=== PATIENT | female | born 1940 | race Caucasian/White ===

== ENCOUNTER 2017-12-11 15:34 | Inpatient (IN) | payer BC, OTHER ==
[~2017-12-11] VITALS: Ht 165.1 cm; Wt 90.5 kg
[2017-12-11 16:41] LABS: Basophils # (auto) 0.1 uL; Eosinophils # (auto) 0.1 uL; Eosinophils % (auto) 1.6 % (0.0-7.0); Hematocrit 31.6 % (36.0-46.0); Hemoglobin 10.4 g/dL (12.2-16.2); Lymphocytes # (auto) 1.7 uL; Mean Corpuscular Hemoglobin 30.6 pg (28.0-32.0); Mean Corpuscular Volume 92.7 fL (80.0-100.0); Monocytes # (auto) 0.7 uL; Monocytes % (auto) 9.7 % (0.0-12.0); Neutrophils # (auto) 4.8 uL; Neutrophils % (auto) 64.7 % (37.0-80.0); Nucleated Red Blood Cells % 0.1 %; Platelet Count (auto) 182 10^3/uL (140-450); Red Blood Cells 3.41 10^6/uL (4.0-5.20); Red Cell Distribution Width 18.1 % (11.8-14.3); White Blood Cell 7.4 10^3/uL (4.4-10.8)
[2017-12-11 16:49] LABS: Alanine Aminotransferase 14 U/L (13-56); Albumin 1.9 g/dL (3.4-5.0); Anion Gap 9 (5-15); Aspartate Aminotransferase 21 U/L (15-37); Blood Urea Nitrogen 35 mg/dL (7-18); Calcium 7.8 mg/dL (8.5-10.1); Carbon Dioxide 26 mmol/L (21-32); Chloride 98 mmol/L (98-107); GFR African American 9 mL/min; GFR Non-African American 8 mL/min; Glucose 97 mg/dL (74-106); Magnesium 2.4 mg/dL (1.6-2.6); Potassium 4.4 mmol/L (3.5-5.1); Sodium 133 mmol/L (136-145)
[2017-12-11 16:54] LABS: Alkaline Phosphatase 118 U/L (45-117); Bilirubin, Total 0.4 mg/dL (0.2-1.0); Total Protein 7.9 g/dL (6.4-8.2)
[2017-12-11 17:18] LABS: Urine Bacteria FEW /hpf (None Seen); Urine Blood 2+ /uL (Negative); Urine Specific Gravity 1.008 (1.001-1.035); Urine WBC 559 /hpf (0 - 5); Urine WBC Clumps PRESENT /hpf (None Seen)
[2017-12-11] MEDS ORDERED: cefTRIAXone 1GM/50ML D5W 50 ML IV ONE ×2 (17:30→19:00)
[2017-12-11] MEDS ORDERED: FURO40TA4 PO (17:57)
[2017-12-11] MEDS ORDERED: POTA10TA51 PO (17:57)
[2017-12-11] MEDS ORDERED: CALC667C5 PO (17:57)
[2017-12-11] MEDS ORDERED: METO25TA5 PO (17:57)
[2017-12-11] MEDS ORDERED: LORazepam 0.5 MG TAB PO PRN (19:00)
[2017-12-11] MEDS ORDERED: ACETAMINOPHEN 500 MG TAB PO PRN (19:00)
[2017-12-11] MEDS ORDERED: MORPHINE SULFATE 4 MG/ML SYR/VIAL IV PRN ×2 (19:00)
[2017-12-11] MEDS ORDERED: TEMAZEPAM 15 MG CAP PO PRN (19:00)
[2017-12-11] MEDS ORDERED: NITROGLYCERIN 0.4 MG SL TAB SL PRN (19:00)
[2017-12-11] MEDS ORDERED: HYDROcodone-ACET 5/325MG TAB PO PRN (19:00)
[2017-12-11] MEDS ORDERED: ONDANSETRON HCL 4 MG/2 ML VIAL IV PRN (19:00)
[2017-12-11] MEDS ORDERED: PIPERACILLIN-TAZOB 2.25GM 50 ML IV ONE (19:15)
[2017-12-11] MEDS ORDERED: PIPERACILLIN-TAZOB 0.75 GM in D5W 5% 50 ML IV PRN (19:30)
[2017-12-11] MEDS: SODIUM BICARBONATE 50ML VIAL 50 ML in D5W/SOD CHL 0.45% 1,000 ML IV SCH (21:45)
[2017-12-11 22:00] VITALS: BP 130/68
[2017-12-11 23:45] LABS: CRP High Sensitivity 11.5 mg/dL (< 0.3)
[2017-12-11 23:56] VITALS: BP 130/68
[2017-12-12 05:00] VITALS: BP 129/54
[2017-12-12 05:18] LABS: Basophils # (auto) 0.1 uL; Basophils % (auto) 1.1 % (0.0-2.0); Eosinophils # (auto) 0.2 uL; Eosinophils % (auto) 2.9 % (0.0-7.0); Hematocrit 31.3 % (36.0-46.0); Lymphocytes # (auto) 2.3 uL; Lymphocytes % (auto) 32.1 % (10.0-50.0); Mean Corpuscular Hemoglobin 29.9 pg (28.0-32.0); Mean Corpuscular Hgb Conc. 31.8 g/dL (32.0-36.0); Mean Corpuscular Volume 93.9 fL (80.0-100.0); Monocytes # (auto) 0.7 uL; Monocytes % (auto) 10.3 % (0.0-12.0); Neutrophils # (auto) 3.8 uL; Neutrophils % (auto) 53.6 % (37.0-80.0); Platelet Count (auto) 173 10^3/uL (140-450); Red Blood Cells 3.33 10^6/uL (4.0-5.20); White Blood Cell 7.1 10^3/uL (4.4-10.8)
[2017-12-12 05:36] LABS: Albumin 1.7 g/dL (3.4-5.0); BUN/Creatinine Ratio 6.3; Calcium 7.4 mg/dL (8.5-10.1); Potassium 3.9 mmol/L (3.5-5.1)
[2017-12-12 05:38] LABS: Bilirubin, Total 0.3 mg/dL (0.2-1.0); Total Protein 7.2 g/dL (6.4-8.2)
[2017-12-12] MEDS: SODIUM BICARBONATE 50ML VIAL 50 ML in D5W/SOD CHL 0.45% 1,000 ML IV SCH ×2 (05:57→16:58)
[2017-12-12] MEDS: PIPERACILLIN-TAZOB 2.25GM 50 ML IV SCH ×3 (05:57→22:14)
[2017-12-12] MEDS: PANTOPRAZOLE 40 MG TAB PO SCH (08:05)
[2017-12-12 09:39] VITALS: BP 133/69
[2017-12-12] MEDS: ASPirin 81 mg TAB PO SCH (10:43)
[2017-12-12 13:02] VITALS: BP 126/58
[2017-12-12 15:30] LABS: Urine Bacteria NONE SEEN /hpf (None Seen); Urine Blood 3+ /uL (Negative); Urine Specific Gravity 1.013 (1.001-1.035); Urine WBC 1182 /hpf (0 - 5); Urine WBC Clumps PRESENT /hpf (None Seen)
[2017-12-12 16:01] LABS: Protein, Urine 84.7 mg/dL (0.0-11.9)
[2017-12-12 16:42] VITALS: BP 112/80
[2017-12-12] MEDS ORDERED: cefTRIAXone 1GM/50ML D5W 50 ML IV SCH (18:00)
[2017-12-12 22:00] VITALS: BP 134/66
[2017-12-13] VITALS (7 sets, daily range): BP systolic 102–135; BP diastolic 50–73
[2017-12-13] MEDS: PIPERACILLIN-TAZOB 2.25GM 50 ML IV SCH ×3 (05:41→22:14)
[2017-12-13] MEDS: SODIUM BICARBONATE 50ML VIAL 50 ML in D5W/SOD CHL 0.45% 1,000 ML IV SCH ×2 (05:41→23:40)
[2017-12-13 07:15] LABS: Basophils # (auto) 0.1 uL; Basophils % (auto) 1.1 % (0.0-2.0); Eosinophils # (auto) 0.2 uL; Eosinophils % (auto) 4.1 % (0.0-7.0); Hemoglobin 10.3 g/dL (12.2-16.2); Lymphocytes # (auto) 1.7 uL; Lymphocytes % (auto) 31.1 % (10.0-50.0); Mean Corpuscular Hemoglobin 30.5 pg (28.0-32.0); Mean Corpuscular Hgb Conc. 32.1 g/dL (32.0-36.0); Monocytes # (auto) 0.6 uL; Monocytes % (auto) 11.8 % (0.0-12.0); Neutrophils # (auto) 2.8 uL; Neutrophils % (auto) 51.9 % (37.0-80.0); Nucleated Red Blood Cells % 0.2 %; Platelet Count (auto) 177 10^3/uL (140-450); Red Blood Cells 3.37 10^6/uL (4.0-5.20); Red Cell Distribution Width 18.7 % (11.8-14.3); White Blood Cell 5.3 10^3/uL (4.4-10.8)
[2017-12-13 07:28] LABS: BUN/Creatinine Ratio 5.8; Calcium 7.9 mg/dL (8.5-10.1); Potassium 3.5 mmol/L (3.5-5.1)
[2017-12-13 07:30] LABS: Phosphorus 3.4 mg/dL (2.5-4.90); Uric Acid 6.2 mg/dL (2.6-6.0)
[2017-12-13] MEDS: PANTOPRAZOLE 40 MG TAB PO SCH (09:59)
[2017-12-13] MEDS: ASPirin 81 mg TAB PO SCH (10:00)
[2017-12-13] MEDS ORDERED: LEVETIRACETAM INJ 500 MG in D5W 5% 100 ML IV ONE (12:00)
[2017-12-13] MEDS: LEVETIRACETAM INJ 500 MG in D5W 5% 100 ML IV SCH (22:14)
[2017-12-14 05:11] VITALS: BP 111/65
[2017-12-14] MEDS: PIPERACILLIN-TAZOB 2.25GM 50 ML IV SCH (06:01)
[2017-12-14 08:34] VITALS: BP 111/53
[2017-12-14] MEDS: ASPirin 81 mg TAB PO SCH (10:59)
[2017-12-14] MEDS: PANTOPRAZOLE 40 MG TAB PO SCH (10:59)
[2017-12-14] MEDS: LEVETIRACETAM INJ 500 MG in D5W 5% 100 ML IV SCH (10:59)
[2017-12-14] MEDS ORDERED: KEP500T PO (12:10)
[2017-12-14 12:17] VITALS: BP 104/52
[2017-12-14 17:09] VITALS: BP 105/57
[2017-12-14 17:37] VITALS: BP 105/57
== END 2017-12-14 18:49 | disposition hospice, home (50) | DRG 100 ==
LOC: ER 15:42 → TELE 18:54 → TELE-CENTR 20:11
PROVIDERS: ADMIT Internal Medicine; ATTEND Hospitalist
DX: G40.909 Epilepsy, unspecified, not intractable, without status epilepticus (principal); N17.0 Acute kidney failure with tubular necrosis; E43 Unspecified severe protein-calorie malnutrition; N18.6 End stage renal disease; N39.0 Urinary tract infection, site not specified; E87.1 Hypo-osmolality and hyponatremia; I12.0 Hypertensive chronic kidney disease with stage 5 chronic kidney disease or end stage renal disease; R47.01 Aphasia; G81.91 Hemiplegia, unspecified affecting right dominant side; F03.90 Unspecified dementia, unspecified severity, without behavioral disturbance, psychotic disturbance, mood disturbance, and anxiety; D63.8 Anemia in other chronic diseases classified elsewhere; I67.1 Cerebral aneurysm, nonruptured; F17.200 Nicotine dependence, unspecified, uncomplicated; Z51.5 Encounter for palliative care; Z74.01 Bed confinement status; Z80.0 Family history of malignant neoplasm of digestive organs; Z82.49 Family history of ischemic heart disease and other diseases of the circulatory system; Z85.42 Personal history of malignant neoplasm of other parts of uterus; Z86.73 Personal history of transient ischemic attack (TIA), and cerebral infarction without residual deficits; Z90.710 Acquired absence of both cervix and uterus; Z68.33 Body mass index [BMI] 33.0-33.9, adult
CPT/HCPCS: 36415; 51702; 70450; 71045; 76775; 80048; 80053; 81001; 82550; 82570; 83605; 83735; 84100; 84156; 84300; 84443; 84484; 84550; 85025; 85652; 86141; 87040; 87081; 87086; 93005; 93306; 93886; 94761; 96374; 96375; G0378; J0696; J2543; J7060